=== PATIENT | female | born 1940 | race Caucasian/White ===

== ENCOUNTER 2017-03-08 23:43 | Observation (INO) | payer OTHER ==
[~2017-03-08] VITALS: Ht 154.9 cm; Wt 85.0 kg
[~2017-03-08 23:43] MED LIST: ADVAIR 100/501 DISK IH; ATIVAN0.5 MG PO; BENADRYL A12.5 MG/5 PO; CLARITIN10 MG PO; GLUCOSAMINE1000 MG PO; LEVAQUIN750 MG PO; PREDNISONE10 MG PO; PROAIR HFA8.5 GM IH; STRESS B-COMPL1 EACH PO; VITAMIN D1000 INTUN PO; ZEGERID20 MG PO; ZIAC 2.5/6.251 TAB PO
[2017-03-09 00:32] LABS: HEMATOCRIT 42.6 % (36.0-46.0); MCH 28.5 PG (29.0-34.0); MCHC 33.8 G/DL (30.0-36.0); MCV 84.4 FL (83-99); MEAN PLAT.VOLUME 9.9 uM^3 (9.5-12.4); PLATELET COUNT 319 K/uL (156-360); RBC DIS.WIDTH-CV 13.1 % (11.8-14.6); RBC DIS.WIDTH-SD 39.8 % (39-53); RED BLOOD COUNT 5.05 M/uL (3.80-5.20)
[2017-03-09 00:53] LABS: TROP-I INTERPRETATION NEGATIVE; TROPONIN-I < 0.01 ng/mL (0.0-0.30)
[2017-03-09 02:06] LABS: CHLORIDE 99 mEq/L (99-109); POTASSIUM 3.8 mEq/L (3.7-5.4); SODIUM 138 mEq/L (136-147)
[2017-03-09 02:08] LABS: GLUCOSE 111 mg/dL (70-99)
[2017-03-09 02:09] LABS: ANION GAP 13 MEQ/L (2-14)
[2017-03-09 02:12] LABS: GFR ESTIMATE (CALCULATED) > 59 mL/min/
[2017-03-09 02:13] LABS: UREA NITROGEN (BUN) 19 mg/dL (9-23)
[2017-03-09] MEDS ORDERED: LEXAPRO5 MG PO (03:39)
[2017-03-09 04:36] VITALS: BP 166/72
[2017-03-09 06:46] LABS: Estimated Average Glucose 128 mg/dL (70-123); HEMOGLOBIN A1c (GLYCOHEMOGLOB) 6.1 % HGB (Below 5.7)
[2017-03-09 07:00] LABS: HDL CHOLESTEROL 46 MG/DL (Desirable>=50); LDL CHOLESTEROL 183 mg/dL (Desirable<100); NON-HDL CHOLESTEROL 207 mg/dL (Desirable<160); TOTAL CHOLESTEROL 253 mg/dL (Desirable<200); TRIGLYCERIDES 122 MG/DL (Normal: <150)
[2017-03-09 07:11] LABS: TROP-I INTERPRETATION NEGATIVE; TROPONIN-I 0.01 ng/mL (0.0-0.30)
[2017-03-09 07:27] VITALS: BP 142/67
[2017-03-09 11:03] VITALS: BP 137/65
[2017-03-09] MEDS ORDERED: ASPIRIN81 M2 PO (11:46)
[2017-03-09] MEDS ORDERED: ADVAIR 250/501 DISK IH (12:59)
[2017-03-09] MEDS ORDERED: DYMISTA NASAL S23 GM BOTH NARES (13:00)
[2017-03-09 13:55] LABS: TROP-I INTERPRETATION NEGATIVE; TROPONIN-I < 0.01 ng/mL (0.0-0.30)
== END 2017-03-09 15:56 | disposition home or self-care (01) ==
LOC: EME 23:43 → EDOF 03-09 02:42 → 5WEST 03-09 04:17
PROVIDERS: Physician Assistant Medical
DX: R10.13 Epigastric pain (principal); R07.89 Other chest pain; I25.10 Atherosclerotic heart disease of native coronary artery without angina pectoris; I10 Essential (primary) hypertension; E78.5 Hyperlipidemia, unspecified; E11.9 Type 2 diabetes mellitus without complications; J45.909 Unspecified asthma, uncomplicated; K21.9 Gastro-esophageal reflux disease without esophagitis; E66.9 Obesity, unspecified; Z66 Do not resuscitate
CPT/HCPCS: 71020; 80048; 80061; 83036; 84484; 85027; 93005; 99281; 99285; G0378